=== PATIENT | male | born 1990 | race American Indian/Alaskan Native ===

== ENCOUNTER 2024-02-16 16:52 | Emergency (ER) | payer MEDICAID ==
[2024-02-16 17:33] LABS: BASOPHILS PERCENT AUTO 0.3 % (0.2-1.2); EOSINOPHILS ABSOLUTE AUTO 0.1 x10^3/uL (0.0-0.5); HEMATOCRIT 48.5 % (40.0-52.0); HEMOGLOBIN 16.6 g/dL (14.0-18.0); IMMATURE GRAN ABSOLUTE AUTO 0.02 x10^3/uL (0.00-0.07); LYMPHOCYTES ABSOLUTE AUTO 2.1 x10^3/uL (1.0-4.8); LYMPHOCYTES PERCENT AUTO 30.9 % (25.0-50.0); MEAN CORPUSCULAR HEMOGLOBIN 30.3 pg (26.0-32.0); MEAN CORPUSCULAR HGB CONC 34.2 g/dL (32.0-36.0); MEAN CORPUSCULAR VOLUME 88.7 fL (78.0-93.0); MONOCYTES ABSOLUTE AUTO 0.6 x10^3/uL (0.0-0.8); MONOCYTES PERCENT AUTO 8.3 % (2.0-11.0); NEUTROPHILS PERCENT AUTO 59.2 % (50.0-80.0); PLATELET COUNT,PLT 233 x10^3/uL (130-400); RED BLOOD CELL COUNT 5.47 x10^6/uL (4.5-6.0); WHITE BLOOD CELL COUNT,WBC 6.8 x10^3/uL (4.0-10.0)
[2024-02-16 17:47] LABS: ALBUMIN 4.1 g/dL (3.4-5.0); BILIRUBIN TOTAL 0.7 mg/dL (0.2-1.0); C-REACTIVE PROTEIN 0.69 mg/dL (<=0.50); CALCIUM 9.4 mg/dL (8.5-10.1); CREATININE 1.2 mg/dL (0.70-1.30); EST CRCL DRUG DOSING (CG) 95.2 mL/min; POTASSIUM,K 4.4 mmol/L (3.5-5.1); PROTEIN TOTAL,TP 8.2 g/dL (6.4-8.2); URIC ACID 4.9 mg/dL (3.5-7.2)
[2024-02-16 17:48] LABS: ANION GAP 13.4 mmol/L (5-15)
[2024-02-16] MEDS: Ketorolac 30 MG/ML SDV IM ONE (18:02)
[2024-02-16] MEDS: predniSONE 20 MG Tab PO ONE (18:08)
[2024-02-16] MEDS: Sulfamethoxazole/Trimethoprim 800-160 MG Tab PO ONE (18:08)
== END 2024-02-16 18:15 ==
LOC: VM.ED 16:52
DX: L03.115 Cellulitis of right lower limb (principal)
CPT/HCPCS: 36415; 73620-RT; 80053; 83605; 84550; 85025; 86140; 87428-QW; 96372; 99283; A9270-GY; J1885; J7512